=== PATIENT | male | born 1980 | race Caucasian/White ===

== ENCOUNTER → 2017-05-31 | Outpatient (CLI) | payer OTHER | END | disposition home or self-care (01) | LOC: RT 19:12 | DX: G47.33 Obstructive sleep apnea (adult) (pediatric) (principal) | CPT/HCPCS: 95810 ==

== ENCOUNTER → 2020-04-29 | Outpatient (CLI) | payer OTHER ==
[2014-12-20 14:56] VITALS: BP 133/84
[~2020-04-29] MED LIST: HYDR-2759 PO
== END ==
LOC: LAB 13:49
PROVIDERS: ATTEND Surgery
DX: Z01.812 Encounter for preprocedural laboratory examination (principal); Z20.822 Contact with and (suspected) exposure to COVID-19; K42.9 Umbilical hernia without obstruction or gangrene
CPT/HCPCS: U0003

== ENCOUNTER 2020-05-02 08:29 | Day surgery (SDC) | payer OTHER ==
[~2020-05-02] VITALS: Ht 177.8 cm; Wt 100.5 kg
[~2020-05-02 08:29] MED LIST changes: +ACETAMINOPHEN 500 MG TABLET PO PRN; -HYDR-2759 PO; +HYDROmorphone 2 MG/ML VIAL IVP PRN; +IV RINGERS,LACTATED 1000ML 1,000 ML IV SCH; +MORPHINE SULFATE 2 MG/ML VIAL. IVP PRN; +PROCHLORPERAZINE 10 MG/2 ML VIAL. IVP PRN; +fentaNYL PF VIAL 100 MCG/2 ML VIAL IVP PRN
[2020-05-02] MEDS ORDERED: ONDANSETRON PF 4 MG/2 ML VIAL. ONE (08:43)
[2020-05-02] MEDS ORDERED: fentaNYL PF VIAL 100 MCG/2 ML VIAL ONE ×2 (08:43→09:38)
[2020-05-02] MEDS ORDERED: DEXAMETHASONE SOD PHOS 4 MG/ML VIAL ONE (08:43)
[2020-05-02] MEDS ORDERED: LIDOCAINE 2% PF 5 ML VIAL. ONE (08:43)
[2020-05-02] MEDS ORDERED: SEVOFLURANE 61 TO 120 MINUTES. IH ONE (08:43)
[2020-05-02] MEDS ORDERED: MIDAZOLAM HCL/PF 2 MG/2 ML VIAL. ONE (08:43)
[2020-05-02] MEDS ORDERED: PROPOFOL 10 MG/ML (20ML) VIAL. IV ONE ×2 (08:43→09:25)
[2020-05-02] MEDS ORDERED: BUPIVACAINE-EPI 0.25% 30 ML VIAL KIT. ONE (08:59)
--- NOTE | 2020-05-02 09:46 | PDOC4 ---
Operative Note Operative Note Date: May 02, 2020 at 09 44 Preoperative diagnosis: Umbilical hernia Postoperative diagnosis: Same Procedure: Umbilical hernia repair Surgeon: Sachin Specimen: None Dictation: Patient is a 40-year-old male complaining of a painful bulge at his umbilicus. Procedure of umbilical hernia repair was explained to the patient detail risk-benefit were also discussed including bleeding infection alternatives to this procedure also discussed with the patient who seemed to understand and gave a verbal written consent had procedure performed. Patient was taken to the operating room placed the supine position general anesthesia was initiated once patient was sleeping intubated his abdomen was prepped and draped in usual sterile fashion using ChloraPrep. An area around the umbilicus was injected with quarter percent Marcaine with epinephrine a incision was made just above the umbilicus with a 15 blade scalpel is carried down through the subcutaneous tissue using electrocautery right hemostasis the hernia sac was excised and the fascial defect was closed with a [id number] 0 Vicryl suture. The umbilicus was tacked to the fascia with a single interrupted 3-0 Vicryl stitch and the deep subcutaneous layer was closed with a 3-0 Vicryl single interrupted sutures and the skin was reapproximated for subcuticular Monocryl Mastisol Steri-Strips and island dressings were applied. Patient was awakened extubated in the operating room taken to recovery in stable condition all sponge instrument needle counts listed as correct estimated blood loss 5 mL ARAMIS ROSEN MD May 02, 2020 09:46
--- NOTE | 2020-05-02 09:48 | DISCH ---
DISCHARGE INSTRUCTIONS Condition on Discharge Condition on Discharge: Stable Activity After Discharge Activity Instructions for Disc: Avoid exertion, Other, see below Other activity instructions: No lifting more than 20 pounds for 2 weeks Diet after Discharge Diet after Discharge: Regular Wound Incision Care Other wound/incision instructi: May shower in 24 hours Contacting the after DC Call your doctor for: If your condition worsens Follow-Up Follow up with: Dr. Rosen in 2-week ARAMIS ROSEN MD May 02, 2020 09:48
[2020-05-02] MEDS ORDERED: HYDR-2759 PO (10:26)
[2020-05-02] MEDS ORDERED: HYDROcodone/APAP 5/325MG 1 TAB TABLET PO ONE ×2 (10:30)
[2020-05-02] MEDS ORDERED: HYDROcodone/APAP 5/325MG 1 TAB TABLET ONE (10:35)
[2020-05-02 10:56] VITALS: BP 132/94
== END 2020-05-02 11:30 | disposition home or self-care (01) ==
LOC: SURG 08:29
PROVIDERS: ATTEND Surgery
DX: K42.9 Umbilical hernia without obstruction or gangrene (principal); I10 Essential (primary) hypertension; E66.9 Obesity, unspecified; F41.9 Anxiety disorder, unspecified; F32.9 Major depressive disorder, single episode, unspecified; G47.30 Sleep apnea, unspecified; Z87.891 Personal history of nicotine dependence; Z79.899 Other long term (current) drug therapy; Z98.890 Other specified postprocedural states; Z72.89 Other problems related to lifestyle; Z88.8 Allergy status to other drugs, medicaments and biological substances
CPT/HCPCS: 49585; J0690; J1100; J2250; J2405; J2704; J3010; J7120